=== PATIENT | male | born 1985 | race Caucasian/White ===

== ENCOUNTER 2017-10-29 15:23 | Outpatient (CLI) ==
--- NOTE | 2017-10-30 07:34 | DI ---
EXAM: Chest two view, frontal and lateral views. HISTORY: Hypertension. COMPARISON: 09/03/2007. FINDINGS: The heart size is at the upper limits of normal. There is no pulmonary vascular congestio n. The lungs are clear. No pleural effusion or pneumothorax is seen. No acute osseous abnormality identified. Since the prior study, there has been no significant interval change. IMPRESSION: No acute cardiopulmonary process.
== END 2017-10-29 15:24 | disposition home or self-care (01) ==
LOC: CAR 15:23
PROVIDERS: ATTEND Physician Assistant
DX: I10 Essential (primary) hypertension (principal)
CPT/HCPCS: 93005; 93010

== ENCOUNTER 2017-10-30 16:26 | Outpatient (CLI) | END 2017-10-30 16:27 | disposition home or self-care (01) | LOC: CAR 16:26 | PROVIDERS: ATTEND Physician Assistant | DX: R40.0 Somnolence (principal) | CPT/HCPCS: 95810 ==

== ENCOUNTER 2017-11-01 08:20 | Outpatient (CLI) ==
--- NOTE | 2017-11-01 09:39 | US ---
EXAM: ULTRASOUND ABDOMEN LIMITED HISTORY: Elevated bilirubin FINDINGS: Ultrasound abdomen, limited. Nieto-scale ultrasound and color Doppler was performed. Live r size was normal at about 12 cm. The liver parenchyma demonstrated diffuse increased sound attenuati on suggesting steatosis. Probable fatty sparing near the gallbladder fossa. The main portal vein is patent and hepatopedal. Gallstones were identified. Gallbladder wall thickness was normal 0.24 cm. The common bile duct afshan meter was normal 0.32 cm. No ascites was identified. The visualized pancreas was within normal limi ts. IMPRESSION: 1. Fatty liver with probable sparing near the gallbladder fossa. 2. Cholelithiasis with no gallbladder wall thickening, common bile duct dilatation or ascites.
== END 2017-11-01 08:21 | disposition home or self-care (01) ==
LOC: RAD 08:20
PROVIDERS: ATTEND Physician Assistant
DX: R17 Unspecified jaundice (principal)

== ENCOUNTER 2018-01-10 15:49 | Outpatient (CLI) | END 2018-01-10 15:50 | disposition home or self-care (01) | LOC: CAR 15:49 | PROVIDERS: ATTEND Psychiatry & Neurology Sleep Medicine | DX: G47.33 Obstructive sleep apnea (adult) (pediatric) (principal) ==

== ENCOUNTER 2018-02-22 12:25 | Outpatient (CLI) ==
--- NOTE | 2018-02-22 13:29 | DI ---
EXAM: Three views of the right ankle. History: Right ankle pain. Findings: No acute fracture or dislocation. Joint spaces are relatively preserved. Diffuse subcuta neous edema and probable joint effusion of the tibiotalar joint. Minimal enthesiopathy at the insert ion of the Achilles tendon. Impression: 1. No acute osseous abnormality. 2. Diffuse subcutaneous edema and probable tibiotalar joint effusion.
== END 2018-02-22 12:26 | disposition home or self-care (01) ==
LOC: RAD 12:25
PROVIDERS: ATTEND Physician Assistant
DX: M25.571 Pain in right ankle and joints of right foot (principal)

== ENCOUNTER 2018-05-29 15:17 | Outpatient (CLI) ==
--- NOTE | 2018-05-29 16:19 | DI ---
EXAM: Three views of the right foot. History: Right foot pain and trauma. Findings: No acute fracture or dislocation. No abnormal calcifications or radiopaque foreign bodies . Minimal enthesiopathy at the insertion of the Achilles tendon. Mild narrowing of the first MTP pascual int with tiny osteophytes. Impression: No acute osseous abnormality
--- NOTE | 2018-05-29 17:19 | DI ---
EXAM: Three views of the right ankle. History: Right ankle pain and trauma. Comparison: Right ankle radiograph 02/22/2018 Findings: No acute fracture or dislocation. Minimal enthesiopathy at the insertion of the Achilles tendon. Joint spaces are relatively preserved. Subcutaneous edema at the ankle. Impression: No acute osseous abnormality
== END 2018-05-29 15:18 | disposition home or self-care (01) ==
LOC: RAD 15:17
PROVIDERS: ATTEND Physician Assistant
DX: M25.571 Pain in right ankle and joints of right foot (principal)

== ENCOUNTER 2018-07-30 09:40 | Outpatient (CLI) ==
--- NOTE | 2018-07-30 11:42 | MRI ---
EXAM: Brain MRI without contrast. HISTORY: Headache. COMPARISON: None. TECHNIQUE: Multiplanar, multisequence MR images were acquired of the brain without contrast. FINDINGS: The midline structures are central and the craniocervical junction is unremarkable. The v entricles, sulci and cisterns are normal. There are no abnormal extra-axial fluid collections. The brain parenchyma has no diffusion restriction to suggest acute hypoperfusion or infarction. Ther e are no abnormal T2 or FLAIR hyperintensities and no abnormal foci of dark gradient echo signal. Th e corpus callosum is unremarkable. The pituitary gland is low normal in size. There are no intraorbital masses. Mild rightward nasal septal deviation is present. There is mild s cattered mucosal thickening in the ethmoid air cells bilaterally and mucosal thickening and a trace o f fluid is present in several posterior right mastoid air cells and scattered throughout a moderate n umber of the left mastoid air cells. Flow voids are present in the major intracranial arteries and dural venous sinuses. IMPRESSION: 1. No intracranial mass, hemorrhage or acute cerebral infarct. 2. Minor right and moderate left mastoid disease.
== END 2018-07-30 09:41 | disposition home or self-care (01) ==
LOC: RAD 09:40
PROVIDERS: ATTEND Nurse Practitioner Family
DX: R51 Headache (principal)

== ENCOUNTER 2018-10-22 09:18 | Outpatient (CLI) | payer OTHER ==
--- NOTE | 2018-10-23 14:31 | MRI ---
EXAM: [facility] [place] MR angiogram without contrast. HISTORY: Headache. COMPARISON: Brain MRI 07/30/2018. TECHNIQUE: 3-D [id number] MR angiography was acquired through the [place] without contr ast. FINDINGS: The right internal carotid artery has no flow-limiting stenoses from the distal cervical s egment to the intracranial bifurcation. The right middle cerebral artery M1 segment is normal. Ther e is early bifurcation of the right middle cerebral artery into the M2 divisions and both are without flow-limiting stenosis. There is a 50-60% 1.5 mm stenosis in the right anterior cerebral artery jus t beyond the origin and distally the artery is normal in caliber to the anterior communicating artery . The right A2 segment is normal. The anterior communicating artery is present. The right posterio r communicating artery is normal. The left internal carotid artery has no hemodynamically significant stenoses from the distal cervical segment to the intracranial bifurcation. There is a partially visualized left posterior communicati ng artery. The left middle cerebral artery has no flow-limiting stenoses. The left anterior cerebra l artery A1 segment is mildly hypoplastic. The left vertebral artery is mildly dominant to the right and there is vertebrobasilar ectasia. Ther e is mild narrowing of the distal right vertebral artery without flow-limiting stenosis to the verteb robasilar junction. The basilar artery is of normal caliber to its bifurcation. Both posterior cere bral arteries are without flow-limiting stenoses to their bifurcations. There are no aneurysms or vascular malformations in the [place]. IMPRESSION: 1. 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 2. No flow-limiting stenoses are present in both internal carotid arteries from the skull base to th e intracranial bifurcations, in the right middle cerebral artery and in the left anterior and middle cerebral arteries. 3. No hemodynamically significant stenoses are present in the posterior circulation. 4. No aneurysms or vascular malformations are present in the [place].
== END 2018-10-22 09:19 | disposition home or self-care (01) ==
LOC: RAD 09:18
PROVIDERS: ATTEND Nurse Practitioner Family
DX: R51 Headache (principal)